=== PATIENT | male | born 1955 | race African-American/Black ===

== ENCOUNTER 2017-02-05 17:03 | Emergency (ER) | payer OTHER ==
[~2017-02-05] VITALS: Ht 154.9 cm; Wt 69.0 kg
[2017-02-05] MEDS ORDERED: MAGNESIUM CITRATE 300ML SOLUTION PO ONE (23:00)
[2017-02-06 02:00] VITALS: BP 131/77
== END 2017-02-06 02:28 | disposition home or self-care (01) ==
LOC: ER 17:03
DX: K59.00 Constipation, unspecified (principal); I10 Essential (primary) hypertension; E11.9 Type 2 diabetes mellitus without complications
CPT/HCPCS: 74000; 99283

== ENCOUNTER 2019-03-02 12:18 | Emergency (ER) | payer OTHER ==
[~2019-03-02] VITALS: Ht 185.4 cm; Wt 72.0 kg
[2019-03-02] MEDS: ASPIRIN 325MG EC TABLET PO ONE ×2 (13:05→13:15)
[2019-03-02 13:09] LABS: BASOPHILS % 0.4 % (0.0-2.0); EOSINOPHILS % 1.1 % (0.0-5.0); HEMATOCRIT. 45.9 % (42.0-52.0); HEMOGLOBIN. 15.4 g/dL (14.0-18.0); LYMPHOCYTES % 25.1 % (20.0-50.0); MEAN CORPUSCULAR VOLUME 92.3 fL (80.0-94.0); MEAN PLATELET VOLUME 9.4 fl (7.4-10.4); MONOCYTES % 6.2 % (2.0-8.0); NEUTROPHILS % 67.2 % (40.0-76.0); PLATELET 173 x1000/uL (130-400); RED BLOOD CELL COUNT 4.97 mill/uL (4.7-6.1); RED CELL DISTRIBUTION WIDTH 13.8 % (11.6-14.6)
[2019-03-02 13:14] LABS: CHLORIDE 104 mEq/L (98-107)
[2019-03-02] MEDS ORDERED: NITROGLYCERIN 0.4MG TABLET SL SL PRN (13:15)
[2019-03-02 15:15] VITALS: BP 154/80
== END 2019-03-02 15:36 | disposition home or self-care (01) ==
LOC: ER 12:18
DX: R00.2 Palpitations (principal); R51 Headache; I10 Essential (primary) hypertension; E11.9 Type 2 diabetes mellitus without complications; Z98.890 Other specified postprocedural states
CPT/HCPCS: 36415; 71045; 83880; 84484; 93005; 99284

== ENCOUNTER 2020-11-09 11:00 | Emergency (ER) | payer MEDICARE, MEDICAID ==
[~2020-11-09] VITALS: Ht 185.4 cm; Wt 72.0 kg
[2020-11-09 11:50] LABS: BASOPHILS % 0.5 % (0.0-2.0); HEMATOCRIT. 39.6 % (42.0-52.0); HEMOGLOBIN. 13.5 g/dL (14.0-18.0); LYMPHOCYTES % 25.1 % (20.0-50.0); MEAN CORPUSCULAR HEMOGLOBIN 31.1 pg (28.0-32.0); MEAN CORPUSCULAR VOLUME 91.2 fL (80.0-94.0); MEAN PLATELET VOLUME 8.8 fl (7.4-10.4); MONOCYTES % 7.1 % (2.0-8.0); NEUTROPHILS % 66.3 % (40.0-76.0); PLATELET 199 x1000/uL (130-400); RED BLOOD CELL COUNT 4.34 mill/uL (4.7-6.1); RED CELL DISTRIBUTION WIDTH 13.8 % (11.6-14.6)
[2020-11-09 11:54] LABS: CHLORIDE 105 mEq/L (98-107)
[2020-11-09] MEDS ORDERED: POTASSIUM CHLORIDE 20MEQ TABLET SR PO NR (14:15)
[2020-11-09 15:28] VITALS: BP 131/70
== END 2020-11-09 15:43 | disposition home or self-care (01) ==
LOC: ER 11:00 → SUPCPDRO 14:55 → ER 15:43
DX: R42 Dizziness and giddiness (principal); R00.2 Palpitations; R55 Syncope and collapse; I10 Essential (primary) hypertension; E78.5 Hyperlipidemia, unspecified; E87.6 Hypokalemia; E11.9 Type 2 diabetes mellitus without complications; Z98.890 Other specified postprocedural states
CPT/HCPCS: 36415; 71045; 80053; 83880; 84484; 85025; 93005; 99285

== ENCOUNTER 2021-12-30 12:38 | Inpatient (IN) | payer MEDICARE, MEDICAID ==
[~2021-12-30] VITALS: Ht 185.4 cm; Wt 65.5 kg
[2021-12-30] MEDS ORDERED: SODIUM CHLORIDE 0.9% 1,000 ML IV ONE (13:15)
[2021-12-30 14:37] LABS: BASOPHILS % 0.5 % (0.0-2.0); EOSINOPHILS % 1.2 % (0.0-5.0); HEMATOCRIT. 35.4 % (42.0-52.0); HEMOGLOBIN. 12.1 g/dL (14.0-18.0); LYMPHOCYTES % 19.3 % (20.0-50.0); MEAN CORPUSCULAR HEMOGLOBIN 31.3 pg (28.0-32.0); MEAN CORPUSCULAR VOLUME 91.8 fL (80.0-94.0); MONOCYTES % 8.6 % (2.0-8.0); NEUTROPHILS % 70.4 % (40.0-76.0); PLATELET 176 x1000/uL (130-400); RED BLOOD CELL COUNT 3.86 mill/uL (4.7-6.1); RED CELL DISTRIBUTION WIDTH 13.2 % (11.6-14.6)
[2021-12-30 14:44] LABS: CHLORIDE 101 mEq/L (98-107)
[2021-12-30] MEDS ORDERED: ASPIRIN 325MG EC TABLET PO ONE (15:00)
[2021-12-30 15:25] LABS: CLARITY URINE CLEAR (CLEAR); COLOR URINE YELLOW (YELLOW); KETONES URINE NEGATIVE (NEGATIVE); LEUKOCYTE ESTERASE URINE NEGATIVE (NEGATIVE); NITRITE URINE NEGATIVE (NEGATIVE); OCCULT BLOOD URINE NEGATIVE (NEGATIVE); PH URINE 6.5 (4.5-8.0); PROTEIN URINE NEGATIVE (NEGATIVE); SPECIFIC GRAVITY URINE 1.012 (1.005-1.030)
[2021-12-30] MEDS ORDERED: ACETAMINOPHEN 650MG SUPP PR PRN (19:00)
[2021-12-30] MEDS ORDERED: HYDROCODONE/ACETAMINOPHEN 5/325MG TABLET PO PRN (19:00)
[2021-12-30] MEDS ORDERED: DEXTROSE 50% WATER 50ML SYRINGE IV PRN (19:00)
[2021-12-30] MEDS ORDERED: CLONIDINE 0.1MG TABLET PO PRN (19:00)
[2021-12-30] MEDS ORDERED: IPRATROPIUM/ALBUTEROL 0.5-3(2.5)MG/3ML NEB NEB PRN (19:00)
[2021-12-30] MEDS ORDERED: NA PHOS,M-B/NA PHOS,DI-BA ENEMA 118ML PR PRN (19:00)
[2021-12-30] MEDS ORDERED: DOCUSATE SODIUM 100MG CAPSULE PO PRN (19:00)
[2021-12-30] MEDS ORDERED: GUAIFENESIN 200MG/10ML SUGAR FREE UDC PO PRN (19:00)
[2021-12-30] MEDS ORDERED: LORAZEPAM 0.5MG TABLET PO PRN (19:00)
[2021-12-30] MEDS ORDERED: ACETAMINOPHEN 325MG TABLET PO PRN (19:00)
[2021-12-30] MEDS ORDERED: ONDANSETRON HCL 4MG/2ML INJ IV PRN (19:00)
[2021-12-30] MEDS ORDERED: DIPHENHYDRAMINE 50MG/ML VIAL IV PRN (19:00)
[2021-12-30] MEDS ORDERED: MAGNESIUM/ALUMINUM HYDROXIDE/SIMETHICONE 30ML UDC PO PRN (19:00)
[2021-12-30] MEDS: SODIUM CHLORIDE 0.45% 1,000 ML IV SCH (19:24)
[2021-12-30] MEDS: ENOXAPARIN 40MG/0.4ML SYR SUBCUT SCH (20:03)
[2021-12-30] MEDS: INSULIN LISPRO 100 UNITS/ML SUBCUT SCH (21:00)
[2021-12-30] MEDS: BLOOD SUGAR DIAGNOSTIC STRIP TEST SCH (21:00)
[2021-12-30 22:00] VITALS: BP 117/68
[2021-12-30 23:57] LABS: CREATINE KINASE 40 IU/L (39-308); CREATINE KINASE MB FRACTION < 1.0 ng/mL (0.5-3.6)
[2021-12-31] VITALS: BP 120/70
[2021-12-31 04:00] VITALS: BP 118/67
[2021-12-31] MEDS: FAMOTIDINE 20MG TABLET PO SCH ×2 (05:30→20:09)
[2021-12-31] MEDS: BLOOD SUGAR DIAGNOSTIC STRIP TEST SCH ×4 (06:15→20:44)
[2021-12-31] MEDS: INSULIN LISPRO 100 UNITS/ML SUBCUT SCH ×4 (07:32→20:55)
[2021-12-31 08:00] VITALS: BP_SYST 104; BP_SYST 118; BP_SYST 143; BP_DIAS 61; BP_DIAS 67; BP_DIAS 80
[2021-12-31 08:04] LABS: BASOPHILS % 0.3 % (0.0-2.0); EOSINOPHILS % 1.7 % (0.0-5.0); HEMATOCRIT. 36.2 % (42.0-52.0); HEMOGLOBIN. 12.2 g/dL (14.0-18.0); LYMPHOCYTES % 24.3 % (20.0-50.0); MEAN CORPUSCULAR HEMOGLOBIN 31.1 pg (28.0-32.0); MEAN CORPUSCULAR VOLUME 91.7 fL (80.0-94.0); MEAN PLATELET VOLUME 8.7 fl (7.4-10.4); MONOCYTES % 9.8 % (2.0-8.0); NEUTROPHILS % 63.9 % (40.0-76.0); PLATELET 172 x1000/uL (130-400); RED BLOOD CELL COUNT 3.94 mill/uL (4.7-6.1); RED CELL DISTRIBUTION WIDTH 12.7 % (11.6-14.6)
[2021-12-31] MEDS: SODIUM CHLORIDE 0.45% 1,000 ML IV SCH (08:19)
[2021-12-31] MEDS: ASPIRIN 81MG EC TABLET PO SCH (08:19)
[2021-12-31 08:34] LABS: CHLORIDE 104 mEq/L (98-107)
[2021-12-31 08:50] LABS: CREATINE KINASE 36 IU/L (39-308); CREATINE KINASE MB FRACTION < 1.0 ng/mL (0.5-3.6)
[2021-12-31] MEDS ORDERED: SODIUM CHLORIDE 0.9% 250 ML IV ONE (10:45)
[2021-12-31 12:00] VITALS: BP_SYST 115; BP_SYST 138; BP_SYST 152; BP_DIAS 67; BP_DIAS 70; BP_DIAS 74
[2021-12-31 12:26] LABS: *AMPHETAMINES SCREEN URINE NEGATIVE (NEGATIVE); *BARBITURATES SCREEN URINE NEGATIVE (NEGATIVE); *BENZODIAZEPINES SCREEN URINE NEGATIVE (NEGATIVE); *COCAINE SCREEN URINE NEGATIVE (NEGATIVE); CANNABINOID URINE SCREEN NEGATIVE (NEGATIVE); METHADONE URINE SCREEN NEGATIVE (NEGATIVE); OPIATES URINE SCREEN NEGATIVE (NEGATIVE); PHENCYCLIDINE URINE SCREEN NEGATIVE (NEGATIVE)
[2021-12-31] MEDS: DEXT 5%/0.45% NACL 1000ML 1,000 ML IV SCH (14:26)
[2021-12-31 16:18] VITALS: BP 168/82
[2021-12-31 20:00] VITALS: BP_SYST 127; BP_SYST 132; BP_SYST 138; BP_DIAS 68; BP_DIAS 74; BP_DIAS 93
[2021-12-31] MEDS: ENOXAPARIN 40MG/0.4ML SYR SUBCUT SCH (20:09)
[2022-01-01] VITALS: BP 106/71
[2022-01-01 04:00] VITALS: BP_SYST 100; BP_SYST 112; BP_SYST 149; BP_DIAS 56; BP_DIAS 61; BP_DIAS 74
[2022-01-01] MEDS: BLOOD SUGAR DIAGNOSTIC STRIP TEST SCH ×2 (06:11→12:08)
[2022-01-01] MEDS: INSULIN LISPRO 100 UNITS/ML SUBCUT SCH ×2 (06:11→12:13)
[2022-01-01] MEDS: DEXT 5%/0.45% NACL 1000ML 1,000 ML IV SCH (06:16)
[2022-01-01 07:25] LABS: BASOPHILS % 0.4 % (0.0-2.0); EOSINOPHILS % 1.9 % (0.0-5.0); HEMATOCRIT. 33.6 % (42.0-52.0); HEMOGLOBIN. 11.3 g/dL (14.0-18.0); LYMPHOCYTES % 31.4 % (20.0-50.0); MEAN CORPUSCULAR HEMOGLOBIN 31.2 pg (28.0-32.0); MEAN CORPUSCULAR VOLUME 92.3 fL (80.0-94.0); MEAN PLATELET VOLUME 8.4 fl (7.4-10.4); MONOCYTES % 12.3 % (2.0-8.0); PLATELET 159 x1000/uL (130-400); RED BLOOD CELL COUNT 3.63 mill/uL (4.7-6.1); RED CELL DISTRIBUTION WIDTH 13.2 % (11.6-14.6)
[2022-01-01 07:47] VITALS: BP 170/84
[2022-01-01 08:13] LABS: CHLORIDE 106 mEq/L (98-107)
[2022-01-01] MEDS: ASPIRIN 81MG EC TABLET PO SCH (08:14)
[2022-01-01] MEDS ORDERED: NALOXONE HCL 0.4MG/ML VIAL IV PRN (08:45)
[2022-01-01] MEDS ORDERED: AMLODIPINE 2.5MG TABLET PO SCH (09:00)
[2022-01-01 12:00] VITALS: BP 146/72
[2022-01-01] MEDS ORDERED: ASPI-1406 PO (14:51)
[2022-01-01] MEDS ORDERED: AMLO2.5T45 PO (14:51)
== END 2022-01-01 17:35 | disposition home or self-care (01) | DRG 74 ==
LOC: ER 13:12 → EDBEDREQ 13:17 → 8WST 16:56 → EDBEDREQTM 17:09 → EDBEDREQ 17:09 → ENRESERV 20:12
PROVIDERS: ADMIT Internal Medicine; ATTEND Internal Medicine
DX: G90.8 Other disorders of autonomic nervous system (principal); D64.9 Anemia, unspecified; E78.5 Hyperlipidemia, unspecified; I10 Essential (primary) hypertension; E11.65 Type 2 diabetes mellitus with hyperglycemia; E11.40 Type 2 diabetes mellitus with diabetic neuropathy, unspecified; R42 Dizziness and giddiness; T46.5X5A Adverse effect of other antihypertensive drugs, initial encounter; Z20.822 Contact with and (suspected) exposure to COVID-19; Z92.3 Personal history of irradiation; Z85.46 Personal history of malignant neoplasm of prostate; Y92.89 Other specified places as the place of occurrence of the external cause
CPT/HCPCS: 36415; 70551; 71045; 80048; 80053; 80305; 81003; 82533; 82550; 82553; 82962; 84153; 84443; 84484; 85025; 87426; 93005; 93306; 93880; 93970; 97161; 99285; C9803; J1650; J1815; J7030; G0103